=== PATIENT | female | born 1950 | race Caucasian/White ===

== ENCOUNTER → 2017-02-07 | Outpatient (CLI) | payer OTHER, MEDICARE ==
[~2017-02-07] MED LIST: ALBU8.5H2 IH; AML5T PO; BENA20TA2 PO; MELO-249 PO; MNTL10T PO; MULT-72 PO; RANI75TA30 PO; THEO600T PO
--- NOTE | 2017-02-07 17:58 | Diagnostic Imaging Report ---
INDICATION: Fall. Right knee pain. EXAMINATION: Frontal, lateral, and oblique radiographs of the right knee are performed. AVAILABLE COMPARISONS: None. FINDINGS: Moderate narrowing of the medial joint space is present with early marginal osteophyte formation at that region. Mild patellofemoral osteophytes are present with mild patellofemoral joint space narrowing. No joint effusion is identified. There is no osteolytic or osteoblastic lesion. No acute fracture seen. IMPRESSION: 1. Degenerative change. No acute finding. Dictated by: Dictated on workstation # [id number]
== END ==
LOC: RAD 14:17
PROVIDERS: ATTEND Family Medicine
DX: S89.91XA Unspecified injury of right lower leg, initial encounter (principal); W19.XXXA Unspecified fall, initial encounter; Y99.0 Civilian activity done for income or pay
CPT/HCPCS: 73562